=== PATIENT | male | born 1980 | race Native Hawaiian/Other Pacific Islander ===

== ENCOUNTER 2016-05-08 13:47 | Outpatient (CLI) | payer BC ==
[~2016-05-08 13:47] MED LIST: DEXL60CA4 PO; LEXAPRO20 MG PO
[2016-05-08] MEDS ORDERED: LOPRESSOR100 MG PO (16:20)
[2016-05-08] MEDS ORDERED: SERT50TA PO (16:21)
[2016-05-08] MEDS ORDERED: BUSP15TAB2 PO (16:21)
== END 2016-05-08 14:07 | disposition short-term general hospital (02) ==
LOC: AMB 13:47
DX: R11.2 Nausea with vomiting, unspecified (principal); I95.89 Other hypotension; R00.0 Tachycardia, unspecified; R10.84 Generalized abdominal pain
CPT/HCPCS: A0425; A0427

== ENCOUNTER 2016-05-08 14:08 | Inpatient (IN) | payer BC ==
[~2016-05-08] VITALS: Ht 185.4 cm; Wt 161.6 kg
[2016-05-08] VITALS (8 sets, daily range): BP systolic 70–148; BP diastolic 39–111; TEMP 97.6–98.2; Ht 185.4 cm; Wt 161.6 kg
[2016-05-08 14:41] LABS: PLATELET COUNT 143 K/uL (142-355)
[2016-05-08] MEDS ORDERED: LOPRESSOR100 MG PO (16:20)
[2016-05-08] MEDS ORDERED: BUSP15TAB2 PO (16:21)
[2016-05-08] MEDS ORDERED: SERT50TA PO (16:21)
[2016-05-09] VITALS: BP 86/43; TEMP 97.7
[2016-05-09 06:48] LABS: PLATELET COUNT 158 K/uL (142-355)
[2016-05-09 07:08] LABS: SODIUM 134 mmol/L (136-145)
[2016-05-09 07:13] LABS: POTASSIUM 7.7 mmol/L (3.6-5.2)
== END 2016-05-09 09:27 | disposition expired | DRG 438 ==
LOC: ED 14:08 → MED/SURG 17:00 → ICU 17:00 → MED/SURG 17:00 → ICU 05-09 04:50 → MED/SURG 05-09 04:50 → ICU 05-09 04:50
PROVIDERS: Family Medicine; ADMIT Emergency Medicine
PROC: 5A1935Z Respiratory Ventilation, Less than 24 Consecutive Hours (ICD-10-PCS; principal; 2016-05-09)
PROC: 0BH18EZ Insertion of Endotracheal Airway into Trachea, Via Natural or Artificial Opening Endoscopic (ICD-10-PCS; 2016-05-09)
PROC: 06HN33Z Insertion of Infusion Device into Left Femoral Vein, Percutaneous Approach (ICD-10-PCS; 2016-05-09)
DX: K85.20 Alcohol induced acute pancreatitis without necrosis or infection (principal); J96.01 Acute respiratory failure with hypoxia; R45.851 Suicidal ideations; E87.2 Acidosis; N17.8 Other acute kidney failure; R57.1 Hypovolemic shock; F32.89 Other specified depressive episodes; D72.828 Other elevated white blood cell count; I49.8 Other specified cardiac arrhythmias; R50.9 Fever, unspecified; E86.0 Dehydration
CPT/HCPCS: 31500; 36415; 36600; 80053; 80307; 80320; 81000; 82150; 82550; 82553; 82805; 83690; 83735; 84100; 84484; 85007; 85027; 85379; 85610; 92950; 93005; 94002; 94003; 96361; 96365; 96366; 96374; 96375; 96376; 99284; C1768; G0479; J0153; J0696; J1100; J1170; J1650; J1940; J2001; J2060; J2250; J2405; J3490